=== PATIENT | male | born 1975 | race Two or more races ===

== ENCOUNTER 2024-02-17 09:52 | Emergency (ER) | payer OTHER ==
[~2024-02-17] VITALS: Ht 188 cm; Wt 97.5 kg
[2024-02-17] MEDS ORDERED: CEFTRIAXONE SODIUM 1,000 MG VIAL IM STA (10:55)
[2024-02-17] MEDS ORDERED: CEFTRIAXONE SODIUM 1,000 MG VIAL ONE (11:01)
[2024-02-17 11:11] LABS: HEMATOCRIT 42.4 % (39.0-48.0); HEMOGLOBIN 13.9 g/dL (13-16.00); MEAN CELL VOLUME 75.7 fL (80.0-100.00); MEAN CORPUSCULAR HEMOGLOBIN 24.8 pg (27.00-32.0); MEAN CORPUSCULAR HGB CONC 32.8 g/dl (32.0-36.0); PLATELET COUNT 363 K/uL (150-450); RED CELL DISTRIBUTION WIDTH 17.3 % (11.5-14.5)
[2024-02-17] MEDS ORDERED: ZITHROMAX500 MG PO (13:54)
[2024-02-17] MEDS ORDERED: GILTUSS COUGH-118 M1 PO (13:54)
== END 2024-02-17 14:23 | disposition home or self-care (01) ==
LOC: ER 09:54
PROVIDERS: Emergency Medicine
DX: J06.9 Acute upper respiratory infection, unspecified (principal); Z20.822 Contact with and (suspected) exposure to COVID-19